=== PATIENT | male | born 1990 | race Caucasian/White ===

== ENCOUNTER 2024-02-19 14:10 | Inpatient (IN) | payer MEDICAID, SELFPAY ==
--- NOTE | 2024-02-19 14:27 | ED.C_ITS ---
HPI - Psych 2 General: Chief Complaint: Psychiatric Symptoms Stated Complaint: 96 Hold Time Seen by Provider: 02/19/24 14:11 Source: patient and police Mode of arrival: ambulatory Limitations: no limitations History of Present Illness: 33-year-old male is here by police patient brought from [facility] on a 96- hour hold patient's been having hallucinations hearing voices he denies SI or HI patient was placed on a court order hold by [facility] [address]. He has been admitted there for 2 weeks for rehab from methamphetamine Associated symptoms: Reports auditory hallucinations; Deny depression Related Data Home Medications Medication Instructions Recorded Confirmed bupropion HCl 150 mg 24 hr tablet, 150 mg PO QAM 02/19/24 02/19/24 extended release olanzapine 10 mg tablet 20 mg PO QPM 02/19/24 02/19/24 propranolol 20 mg tablet 20 mg PO TID 02/19/24 02/19/24 Review of Systems 2 Const: Denies: fever(s), chills, body aches or change in appetite ENMT: Denies: throat pain or dental pain Card: Denies: chest pain Resp: Denies: dyspnea GI: Denies: abdominal pain, nausea, vomiting or diarrhea Musc: Denies: neck pain or back pain Skin/Breast: Denies: rash Neuro: Denies: headache(s) Psych: Reports: difficulty concentrating and auditory hallucinations; Denies: depression Physical Exam 2 Const: COMMON NORMALS: no acute distress, patient oriented x3 and healthy appearing HENMT: COMMON NORMALS: normocephalic and atraumatic HEAD & SCALP: n ormocephalic and atraumatic Neck/C-Spine: COMMON NORMALS: full ROM and supple Chest: COMMONS NORMALS: normal inspection of the chest Resp: COMMON NORMALS: normal respiratory effort Cardio: COMMON NORMALS: regular rate RATE: regular rate Extremity: COMMON NORMALS: normal to inspection and full ROM Neuro: COMMON NORMALS: patient oriented x3, moves all extremities and no focal motor deficits Psych: COMMON NORMALS: cooperative THOUGHT CONTENT: Yes Hallucination(s) present Skin: COMMON NORMALS: no rashes or lesions noted and no wounds GENERAL SKIN EXAM: no rashes or lesions noted MDM - Psych Medical Decision Making Patient presents here with auditory hallucinations he has been placed on a 96- hour hold by [facility] I spoke to psychiatrist patient is medically cleared will admit Medical Records I reviewed the patient's medical records. Lab Data I reviewed the patient's lab results. 02/19/24 14:32 02/19/24 14:32 Laboratory Results WBC 10.21 10^3/uL (3.29-11.43) 02/19/24 14:32 RBC 5.31 10^6/uL (3.85-5.65) 02/19/24 14:32 Hgb 14.80 g/dL (11.27-16.99) 02/19/24 14:32 Hct 45.8 % (37-53) 02/19/24 14:32 MCV 86.3 fl (82-101) 02/19/24 14: MCH 27.9 pg (27-33) 02/19/24 14: MCHC 32.3 g/dL (30-55) 02/19/24 14:32 RDW 13.2 % (12.1-15.1) 02/19/24 14:32 Plt Count 268 10^3/cmm (157-399) 02/19/24 14:32 MPV 9.4 fL (7.4-10.4) 02/19/24 14:32 Neut % (Auto) 55.4 % 02/19/24 14:32 Lymph % (Auto) 34.0 % 02/19/24 14:32 [place] % (Auto) 6.2 % 02/19/24 14:32 Eos % (Auto) 2.8 % 02/19/24 14:32 Baso % (Auto) 1.2 % 02/19/24 14:32 Neut # (Auto) 5.66 10^3/uL (1.8-7.7) 02/19/24 14:32 Lymph # (Auto) 3.5 10^3/uL (0.8-4.8) 02/19/24 14:32 [place] # (Auto) 0.6 10^3/uL (0.2-0.9) 02/19/24 14:32 Eos # (Auto) 0.3 10^3/uL (0.0-0.8) 02/19/24 14:32 Baso # (Auto) 0.1 10^3/uL (0.0-0.1) 02/19/24 14:32 Nucleated RBC % (auto) 0 % 02/19/24 14:32 Nucleated RBCs # 0.0 /100WBC 02/19/24 14:32 Sodium 138 mmol/L (136-145) 02/19/24 14:32 Potassium 4.5 mmol/L (3.5-5.1) 02/19/24 14:32 Chloride 101 mmol/L (98-107) 02/19/24 14:32 Carbon Dioxide 26 mmol/L (22-29) 02/19/24 14:32 Anion Gap 15.5 (5-19) 02/19/24 14:32 BUN 6 mg/dL (6-20) 02/19/24 14:32 Creatinine 0.8 mg/dL (0.7-1.2) 02/19/24 14:32 GFR Calculation 112.8 mL/min (90-130) 02/19/24 14:32 Glucose 87 mg/dL (65-115) 02/19/24 14:32 Calculated Osmolality 283 mOsm/kg (285-295) L 02/19/24 14:32 Calcium 9.0 mg/dL (8.5-10.5) 02/19/24 14:32 Total Bilirubin 0.2 mg/dL (0.15-1.2) 02/19/24 14:32 AST 18 U/L (0-40) 02/19/24 14:32 ALT 11 U/L (0-41) 02/19/24 14:32 Alkaline Phosphatase 100 U/L (40-130) 02/19/24 14:32 Total Protein 7.2 g/dL (6.6-8.7) 02/19/24 14:32 Albumin 4.5 g/dL (3.5-5.2) 02/19/24 14:32 Globulin 2.7 g/dL (1.3-4.6) 02/19/24 14:32 Salicylates < 0.3 mg/dL (3-10) L 02/19/24 14:32 Urine Opiates Screen Negative ng/mL (Negative) 02/19/24 14:16 Acetaminophen < 5.0 ug/mL (10-30) L 02/19/24 14:32 Ur Barbiturates Screen Negative ng/mL (Negative) 02/19/24 14:16 Ur Phencyclidine Scrn Negative ng/mL (Negative) 02/19/24 14:16 Ur Amphetamines Screen Negative ng/mL (Negative) 02/19/24 14:16 U Benzodiazepines Scrn Negative ng/mL (Negative) 02/19/24 14:16 Urine Cocaine Screen Negative ng/mL (Negative) 02/19/24 14:16 U Marijuana (THC) Screen Negative ng/mL (Negative) 02/19/24 14:16 Ethyl Alcohol < 10 mg/dL (0-10) 02/19/24 14:32 No radiology studies performed this visit Discharge Plan Discharge Condition: Stable Prescriptions: No Action olanzapine 10 mg tablet 20 mg PO QPM propranolol 20 mg tablet 20 mg PO TID bupropion HCl 150 mg tablet extended release 24 hr 150 mg PO QAM Coding Level of Care Code ED Biomedical Equipment Specialist for Yamileth Hayes
[2024-02-19 14:39] LABS: Basophils # 0.1 10^3/uL (0.0-0.1); Basophils % 1.2 %; Eosinophils # 0.3 10^3/uL (0.0-0.8); Eosinophils % 2.8 %; Hematocrit 45.8 % (37-53); Lymphocytes # 3.5 10^3/uL (0.8-4.8); Mean Corpuscular HGB Conc 32.3 g/dL (30-55); Mean Corpuscular Hemoglobin 27.9 pg (27-33); Mean Corpuscular Volume 86.3 fl (82-101); Mean Platelet Volume 9.4 fL (7.4-10.4); Monocytes # 0.6 10^3/uL (0.2-0.9); Monocytes % 6.2 %; Neutrophils # 5.66 10^3/uL (1.8-7.7); Neutrophils % 55.4 %; Nucleated Red Blood Cells % 0 %; Platelet Count 268 10^3/cmm (157-399); Red Blood Count 5.31 10^6/uL (3.85-5.65); Red Cell Distribution Width 13.2 % (12.1-15.1); White Blood Count 10.21 10^3/uL (3.29-11.43)
--- NOTE | 2024-02-19 14:53 | PC.PHAR ---
we had a 10mg dose on the olanzapine, patient stated he had a recent dose change to 20mg
[2024-02-19 14:59] LABS: Alanine Aminotransferase 11 U/L (0-41); Albumin Level 4.5 g/dL (3.5-5.2); Alkaline Phosphatase 100 U/L (40-130); Anion Gap 15.5 (5-19); Aspartate Amino Transferase 18 U/L (0-40); Blood Urea Nitrogen 6 mg/dL (6-20); Carbon Dioxide 26 mmol/L (22-29); Chloride 101 mmol/L (98-107); Globulin 2.7 g/dL (1.3-4.6); Glomerular Filtration Rate 112.8 mL/min (90-130); Glucose 87 mg/dL (65-115); Osmolality Calculated 283 mOsm/kg (285-295); Potassium 4.5 mmol/L (3.5-5.1); Sodium 138 mmol/L (136-145); Total Bilirubin 0.2 mg/dL (0.15-1.2); Total Protein 7.2 g/dL (6.6-8.7)
[2024-02-19 15:01] LABS: Acetaminophen < 5.0 ug/mL (10-30); Alcohol Level < 10 mg/dL (0-10); Salicylate < 0.3 mg/dL (3-10)
[2024-02-19 15:27] LABS: Amphetamines Screen Urine Negative (Negative); Barbiturates Screen Urine Negative (Negative); Benzodiazepines Screen Urine Negative (Negative); Cocaine Screen Urine Negative (Negative); Opiate Screen Urine Negative (Negative); PCP Screen Urine Negative (Negative); THC Screen Urine Negative (Negative)
[2024-02-19] MEDS: nicotine 21 mg Patch 1 PATCH TRANSDERMA (15:48)
--- NOTE | 2024-02-19 16:51 | PC.NURSE ---
96 hour hold rights read and reviewed with patient. Patient was brought in on a hold by [facility]. Patient verbalized understandings and copy of rights given to patient.
[2024-02-19 16:52] VITALS: BP 149/94; PULSE 78; RESP 20; TEMP 36.5; O2SAT 99
--- NOTE | 2024-02-19 17:31 | PC.NURSE ---
Report called to NPU 170-1 Cristina nurse.
[2024-02-19 17:41] VITALS: BP 135/91; BP 149/94; PULSE 70; PULSE 78; RESP 16; TEMP 37.1; O2SAT 98; O2SAT 99
--- NOTE | 2024-02-19 18:36 | PC.NURSE ---
Patient denies si/hi. He does say he attempted to overdose on meth approximately 2 years ago, but was unsuccessful. He denies vh, but says he often hears voices telling him things that don't make sense until they happen later on and that the voices have helped him through things . Patient states he has a court date on 05/01/24 for drug (meth) possession. He says he was in [facility] from August 16, 2022-September and that when he was released within the month 3 people had already shown up to his house to sell him meth and he ended up relapsing. Patient arrived with police from [facility] where he is currently in treatment for his methamphetamine abuse and says he has been there since 02/06/24. Patient says he is unsure why police brought him here, but that he thinks he may have had an altercation with someone that he's not aware of. He says he also noticed that his roommate at [facility] was moved out of his room and he thinks the roommate may have said something. Patient lives with his father and does say his father does not use any drugs.
[2024-02-19 20:25] VITALS: BP 132/72; PULSE 85; RESP 18; TEMP 36.9; O2SAT 97
[2024-02-19] MEDS: OLANZapine 10 mg TABLET 20 MG PO (21:54)
[2024-02-19] MEDS: propranolol 20 mg Tablet PO (21:54)
[2024-02-20 06:00] VITALS: BP 130/78; PULSE 77; RESP 18; TEMP 36.4; O2SAT 99
[2024-02-20] MEDS: buPROPion XL (24 HR) 150 mg Tablet PO (08:05)
[2024-02-20] MEDS: propranolol 20 mg Tablet PO ×3 (08:05→21:13)
[2024-02-20] MEDS: acetaminophen 325 mg Tablet 650 MG PO (12:33)
[2024-02-20] MEDS: hyDROXYzine 25 mg Capsule 50 MG PO (13:18)
--- NOTE | 2024-02-20 13:56 | W.PM.NPUH&PS ---
Providers/Chief Complaint Admitting Physician: Bam Michel MD Chief Complaint: 96 Hold HPI NPU History of Present Illness Hermilo Rodriguez is a 33 year old male who presented to the emergency department with the following report: Chief Complaint: Psychiatric Symptoms Stated Complaint: 96 Hold Time Seen by Provider: 02/19/24 14:11 Source: patient and police Mode of arrival: ambulatory Limitations: no limitations History of Present Illness: 33-year-old male is here by police patient brought from [facility] on a 96-hour hold patient's been having hallucinations hearing voices he denies SI or HI patient was placed on a court order hold by [facility]. He has been admitted there for 2 weeks for rehab from methamphetamine Associated symptoms: Reports auditory hallucinations; Deny depression. He was admitted to the neuropsychiatric unit for definitive treatment of those issues. He is unknown to [facility] inpatient or outpatient psychiatric services. He presents today reporting: Chief complaint The patient is struggling with methamphetamine addiction and has been hearing voices. History of the present complaint The patient, born on 1990, is currently on olanzapine and propranolol, which he takes daily. He started taking these medications a few months ago, initially in an outpatient clinic in [place], before moving to [facility]. The patient has a history of methamphetamine use, which he started struggling with at the age of 29. He has been admitted to psychiatric hospitals approximately 10 times in the last 15 years. He has also been treated at [facility] and is currently attending [facility]. The patient reported that his symptoms worsened after he stopped using methamphetamine. He has been on several medications in the past, including Newman, Depakote, Drexel, and Abilify. He expressed a preference for pill forms of medication, as he finds it difficult to get the injections due to transportation issues. He has also been on the Invega shot, which he found unhelpful. The patient reported hearing voices, which started three days after a night of missed sleep. He denied any feelings of paranoia. He has experienced periods of depression, during which his sleep and diet are affected. He tends to eat more or less during these periods and has low energy. He has had thoughts of not wanting to wake up and has acted on suicidal thoughts twice in his life, both times through overdosing. He also has a history of self-injurious behavior, such as burning himself, which started when he was younger but has not occurred for many years. The patient reported occasional feelings of anxiety and worry but denied any paranoia or intrusive thoughts. He also denied having nightmares or flashbacks about bad things that have happened. He has been on his current medication for a while and finds it acceptable. He has been to rehab multiple times but has never had any charges related to substance use. He started smoking tobacco three years ago and currently smokes about two packs a day. He used to use marijuana regularly but does not currently use it. He does not consume alcohol. The patient has been in nursing home once for a year but has no other retirement time. He has no known medical problems and has never had any surgeries or broken bones. He reported feeling good on the day of the consultation and denied any current thoughts of self-harm, suicide, or harm to others. He also denied currently hearing voices, seeing things, or feeling paranoid. His longest job was for six months, and he is currently on disability. He identifies as heterosexual and his longest relationship lasted three months. He has never been or had children. He has no tenriism belief system. Mental health history The patient has been in psychiatric hospitals approximately 10 times in the last 15 years. He has been on various medications including olanzapine, propranolol, Depakote, Drexel, and Abilify. He has a history of self-injurious behavior, such as burning himself, which started when he was younger but has not occurred in recent years. He has also attempted suicide twice in his life through overdose. Social history The patient has a history of methamphetamine use, starting at the age of 29. He has been to rehab multiple times. He also has a history of tobacco use, smoking about two packs a day for the past three years. He used to use cannabis regularly but has not in recent years. He does not consume alcohol. He has been unemployed for a while and is currently on disability. He has been in nursing home once for a year. Meds NPU Home Medications Medication Instructions Recorded Confirmed Last Taken Type bupropion HCl 150 mg 24 hr tablet, 150 mg PO QAM 02/19/24 02/19/24 Unknown History extended release olanzapine 10 mg tablet 20 mg PO QPM 02/19/24 02/19/24 Unknown History propranolol 20 mg tablet 20 mg PO TID 02/19/24 02/19/24 Unknown History Allergies Allergy/AdvReac Type Severity Reaction Status Date / Time poison kylie extract Allergy ALGY-Rash Verified 02/19/24 18:43 PFSH NPU PFS: Family History (Updated 02/19/24 @ 18:45 by Génesis Lobo RN) Father Pancreatitis Heart failure Mental Status Exam MSE Comments: This is a well-nourished well-developed white male in hospital scrubs with limited grooming and eye contact. No abnormal movements except for mild psychomotor retardation . He was cooperative with exam in mild distress. Speech was decreased rate and volume. Mood described as slightly depressed and anxious, his affect was mood congruent. Thought process was linear. Thought content: The patient reports hearing voices and has a history of psychosis. He has experienced depression and has had periods of low mood and energy, which have affected his sleep and diet. He has also experienced suicidal ideation in the past. He reports occasional anxiety and feeling fidgety but denies any paranoia or intrusive thoughts. He denies any current thoughts of self-harm, violence towards others, or hallucinations. Attention and concentration were mostly intact and memory appeared somewhat reliable but none were formally tested. He is alert and oriented to person, place and situation. Insight, judgment and impulse control all impaired. Vitals/I&O/Wt Last Vital Signs Temp 97.6 F 02/20/24 06:00 Pulse 77 02/20/24 06:00 Resp 18 02/20/24 06:00 BP 130/78 02/20/24 06:00 Pulse Ox 99 02/20/24 06:00 O2 Del Method Room Air 02/20/24 06:00 Weight last 48 hrs Weight 68.039 kg Data NPU 02/19/24 14:32 02/19/24 14:32 A&P Assessment and plan (1) History of schizophrenia: (2) Psychosis: (3) Methamphetamine use disorder, severe, dependence: Plan This is a 33-year-old white male with a history of addiction and some mental health challenges and reports that he had been recently using methamphetamine before going to [employer] and then had some psychosis that it was hard to manage. The patient is experiencing methamphetamine use disorder and has been experiencing auditory hallucinations. He has a history of self-injurious behavior and suicide attempts. He is currently on olanzapine and propranolol and has been adherent to his pharmacotherapy regimen. 1.? Continue current medication. 2.? Continue every 15 minute checks for safety. 3.? Encourage individual, group and milieu therapies. 4. Encourage sober living treatment after discharge at the highest level care to which he is willing to commit. He will return to [facility] upon discharge. 5. Obtain collateral information. Involuntary Hold Information 96 Hour Hold: 96 Hour Involuntary Admission: Yes 96 Hour Hold Ending Date: 02/26/24 96 Hour Hold Ending Time: 14:12 Other Hold: Hold End Date: 02/26/24 Attestations NPU Medical Necessity Statement*: Inpatient hospitalization is medically necessary and the clinically appropriate intervention at this time. We will monitor medications/initiate medications and make changes as indicated. He will be in the hospital for over 2 midnights. Likely length of stay 3 to 5 days. Coding Level of Care Code Acute Code for Chg Fwd Diagnoses History of schizophrenia Z86.59 Psychosis F29 Methamphetamine use disorder, severe, dependence F15.20
[2024-02-20 14:00] VITALS: BP 131/79; PULSE 66; RESP 17; TEMP 36.7; O2SAT 97
[2024-02-20 20:00] VITALS: BP 133/70; PULSE 76; RESP 16; TEMP 36.9; O2SAT 98
[2024-02-20] MEDS: OLANZapine 10 mg TABLET 20 MG PO (21:13)
[2024-02-21 06:00] VITALS: BP 131/84; PULSE 78; RESP 18; O2SAT 97
[2024-02-21] MEDS: nicotine 4 mg lozenge MUCOUS MEM ×6 (06:24→19:36)
[2024-02-21] MEDS: propranolol 20 mg Tablet PO ×3 (08:22→21:34)
[2024-02-21] MEDS: buPROPion XL (24 HR) 150 mg Tablet PO (08:22)
--- NOTE | 2024-02-21 11:17 | PC.NURSE ---
NEW ORDERS RECEIVED FROM DR. CAST TO START ZYDIS 5 MG PO DAILY, FIRST DOSE TO BE GIVEN NOW, THEN DAILY AFTER. ORDERS PLACED AND PTS RN UPDATED ON NEW ORDERS.
[2024-02-21] MEDS: OLANZapine 5 mg ODT PO (12:42)
[2024-02-21 14:00] VITALS: BP 128/81; PULSE 95; RESP 16; TEMP 36.7; O2SAT 96
--- NOTE | 2024-02-21 16:57 | P.NPUPN_ITS ---
Subjective NPU 2 Subjective: Patient presented today reporting no changes. He continues to report a desire to maintain his current medication and we discussed the risks, benefits and alternatives of adding 5 mg of Zyprexa as a morning dose and he understood and agreed to proceed as is documented in this note. We agreed to a goal of getting him a bit more stabilized before returning to [facility]. He denied any side effects to the medication. Mental Status Exam 2 MSE Comments: This is a well-nourished well-developed white male in hospital scrubs with limited grooming and eye contact. No abnormal movements except for mild psychomotor retardation . He was cooperative with exam in mild distress. Speech was decreased rate and volume. Mood described as slightly depressed and anxious, his affect was mood congruent. Thought process was linear. Thought content: The patient reports hearing voices and has a history of psychosis. He has experienced depression and has had periods of low mood and energy, which have affected his sleep and diet. He has also experienced suicidal ideation in the past. He reports occasional anxiety and feeling fidgety but denies any paranoia or intrusive thoughts. He denies any current thoughts of self-harm, violence towards others, or hallucinations. Attention and concentration were mostly intact and memory appeared somewhat reliable but none were formally tested. He is alert and oriented to person, place and situation. Insight, judgment and impulse control all impaired. Vitals/I&O/Wt Last Vital Signs Temp 98.0 F 02/21/24 14:00 Pulse 95 02/21/24 14:00 Resp 16 02/21/24 14:00 BP 128/81 02/21/24 14:00 Pulse Ox 96 02/21/24 14:00 O2 Del Method Room Air 02/21/24 06:00 Weight last 48 hrs Weight 68.039 kg Data NPU 02/19/24 14:32 02/19/24 14:32 A&P Assessment and plan (1) History of schizophrenia: (2) Psychosis: (3) Methamphetamine use disorder, severe, dependence: Plan This is a 33-year-old white male with a history of addiction and some mental health challenges and reports that he had been recently using methamphetamine before going to [facility] and then had some psychosis that it was hard to manage. The patient is experiencing methamphetamine use disorder and has been experiencing auditory hallucinations. He has a history of self-injurious behavior and suicide attempts. He is currently on olanzapine and propranolol and has been adherent to his pharmacotherapy regimen. 1.? Continue current medication. Added a 5 mg morning dose of the Zyprexa. 2.? Continue every 15 minute checks for safety. 3.? Encourage individual, group and milieu therapies. 4. Encourage sober living treatment after discharge at the highest level care to which he is willing to commit. He will return to [facility] upon discharge. 5. Obtain collateral information. Involuntary Hold Information 2 96 Hour Hold: 96 Hour Involuntary Admission: Yes 96 Hour Hold Ending Date: 02/26/24 96 Hour Hold Ending Time: 14:12 Other Hold: Hold End Date: 02/26/24 Attestations NPU 2 Medical Necessity Statement*: Inpatient hospitalization is medically necessary and the clinically appropriate intervention at this time. We will monitor medications/initiate medications and make changes as indicated. Likely length of stay 3 to 5 days. Coding Level of Care Code Acute Code for Chg Fwd Diagnoses History of schizophrenia Z86.59 Psychosis F29 Methamphetamine use disorder, severe, dependence F15.20
[2024-02-21 19:41] VITALS: BP 131/82; PULSE 79; RESP 18; TEMP 37.1; O2SAT 99
[2024-02-21] MEDS: OLANZapine 10 mg TABLET 20 MG PO (21:34)
[2024-02-22 06:00] VITALS: BP 145/83; PULSE 67; RESP 16; TEMP 36.8; O2SAT 99
[2024-02-22] MEDS: nicotine 4 mg lozenge MUCOUS MEM ×7 (06:54→20:40)
[2024-02-22] MEDS: buPROPion XL (24 HR) 150 mg Tablet PO (08:27)
[2024-02-22] MEDS: OLANZapine 5 mg ODT PO (08:27)
[2024-02-22] MEDS: propranolol 20 mg Tablet PO ×3 (08:27→20:40)
[2024-02-22] MEDS: acetaminophen 325 mg Tablet 650 MG PO (10:22)
[2024-02-22 14:00] VITALS: BP 127/81; PULSE 76; RESP 18; TEMP 36.6; O2SAT 97
--- NOTE | 2024-02-22 14:43 | P.NPUPN_ITS ---
Subjective NPU 2 Subjective: Patient presented today reporting that he was doing okay on his medication. We had discussed the risks, benefits and alternatives of adding Zyprexa 5 mg p.o. daily and he understood and agreed to proceed as is documented in this note. He reports that he is doing well otherwise and is hopeful that he can return to [facility] by Sunday. He denied any side effects to the medication. Mental Status Exam 2 MSE Comments: This is a well-nourished well-developed white male in hospital scrubs with limited grooming and eye contact. No abnormal movements except for mild psychomotor retardation . He was cooperative with exam in mild distress. Speech was decreased rate and volume. Mood described as slightly depressed and anxious, his affect was mood congruent. Thought process was linear. Thought content: The patient reports hearing voices and has a history of psychosis. He has experienced depression and has had periods of low mood and energy, which have affected his sleep and diet. He has also experienced suicidal ideation in the past. He reports occasional anxiety and feeling fidgety but denies any paranoia or intrusive thoughts. He denies any current thoughts of self-harm, violence towards others, or hallucinations. Attention and concentration were mostly intact and memory appeared somewhat reliable but none were formally tested. He is alert and oriented to person, place and situation. Insight, judgment and impulse control all impaired. Vitals/I&O/Wt Last Vital Signs Temp 98.2 F 02/22/24 06:00 Pulse 67 02/22/24 06:00 Resp 16 02/22/24 06:00 BP 145/83 02/22/24 06:00 Pulse Ox 99 02/22/24 06:00 O2 Del Method Room Air 02/22/24 06:00 Data NPU 02/19/24 14:32 02/19/24 14:32 A&P Assessment and plan (1) History of schizophrenia: (2) Psychosis: (3) Methamphetamine use disorder, severe, dependence: Plan This is a 33-year-old white male with a history of addiction and some mental health challenges and reports that he had been recently using methamphetamine before going to [facility] and then had some psychosis that it was hard to manage. The patient is experiencing methamphetamine use disorder and has been experiencing auditory hallucinations. He has a history of self-injurious behavior and suicide attempts. He is currently on olanzapine and propranolol and has been adherent to his pharmacotherapy regimen. 1.? Continue current medication. Added a 5 mg morning dose of the Zyprexa. 2.? Continue every 15 minute checks for safety. 3.? Encourage individual, group and milieu therapies. 4. Encourage sober living treatment after discharge at the highest level care to which he is willing to commit. He will return to [facility] upon discharge. 5. Obtain collateral information. Involuntary Hold Information 2 96 Hour Hold: 96 Hour Involuntary Admission: Yes 96 Hour Hold Ending Date: 02/26/24 96 Hour Hold Ending Time: 14:12 Other Hold: Hold End Date: 02/26/24 Attestations NPU 2 Medical Necessity Statement*: Inpatient hospitalization is medically necessary and the clinically appropriate intervention at this time. We will monitor medications/initiate medications and make changes as indicated. Likely length of stay 3 days. Coding Level of Care Code Acute Code for Chg Fwd Diagnoses History of schizophrenia Z86.59 Psychosis F29 Methamphetamine use disorder, severe, dependence F15.20
[2024-02-22 19:36] VITALS: BP 116/75; PULSE 68; RESP 16; TEMP 36.8; O2SAT 99
[2024-02-22] MEDS: hyDROXYzine 25 mg Capsule 50 MG PO (20:40)
[2024-02-22] MEDS: OLANZapine 10 mg TABLET 20 MG PO (20:40)
--- NOTE | 2024-02-22 21:24 | PC.NURSE ---
Addendum entered and electronically signed by Tata Wolfe RN 02/24/24 06:31: PT UP AND DOWN THROUGHOUT THE NIGHT DUE TO ROOM MATE NOT SLEEPING AND KEEPING HIM UP. MEDICATION WAS SOMEWHAT EFFECTIVE AND PT STATES HE WAS ABLE TO REST A FEW HOURS. PT HAS BEEN RESTING SINCE ABOUT 0400 AND CONTINUES TO REST WITH EASE. Original Note: IN BED RESTING, DENIES PAIN. DENIES SI/HI AND AVH AT THIS TIME. RATES ANXIETY 6/10 AND DEPRESSION 4/10. VISTARIL 50 MG GIVEN ORDERED FOR INCREASED ANXIETY. SUPPORT VOICED.
[2024-02-23 05:55] VITALS: BP 147/84; PULSE 60; RESP 16; TEMP 36.8; O2SAT 97
[2024-02-23] MEDS: nicotine 4 mg lozenge MUCOUS MEM ×7 (06:32→22:29)
[2024-02-23] MEDS: OLANZapine 5 mg ODT PO (08:32)
[2024-02-23] MEDS: buPROPion XL (24 HR) 150 mg Tablet PO (08:32)
[2024-02-23] MEDS: propranolol 20 mg Tablet PO ×3 (08:32→20:33)
--- NOTE | 2024-02-23 08:34 | P.NPUPN_ITS ---
Subjective NPU 2 Subjective: Patient presents today reporting that he is doing all right and is optimistic about the plan of returning to [facility] likely on Sunday. He reports that the morning dose of Zyprexa has been helpful in calming his mind during the day and he feels that it was just a late impact of the methamphetamine when he started feeling the way that he did. He continues to have more more days from his methamphetamine use and he feels optimistic that he will be ready to return to [facility] on Sunday. He denied any side effects to the medication. Mental Status Exam 2 MSE Comments: This is a well-nourished well-developed white male in hospital scrubs with limited grooming and eye contact. No abnormal movements except for mild psychomotor retardation . He was cooperative with exam in mild distress. Speech was decreased rate and volume. Mood described as a little better, his affect was mood congruent still slightly subdued. Thought process was linear. Thought content: The patient reports hearing voices and has a history of psychosis. He has experienced depression and has had periods of low mood and energy, which have affected his sleep and diet. He has also experienced suicidal ideation in the past. He reports occasional anxiety and feeling fidgety but denies any paranoia or intrusive thoughts. He denies any current thoughts of self-harm, violence towards others, or hallucinations. Attention and concentration were mostly intact and memory appeared somewhat reliable but none were formally tested. He is alert and oriented to person, place and situation. Insight, judgment and impulse control all impaired. Vitals/I&O/Wt Last Vital Signs Temp 98.2 F 02/23/24 05:55 Pulse 60 02/23/24 05:55 Resp 16 02/23/24 05:55 BP 147/84 02/23/24 05:55 Pulse Ox 97 02/23/24 05:55 O2 Del Method Room Air 02/23/24 05:55 Data NPU 02/19/24 14:32 02/19/24 14:32 A&P Assessment and plan (1) History of schizophrenia: (2) Psychosis: (3) Methamphetamine use disorder, severe, dependence: Plan This is a 33-year-old white male with a history of addiction and some mental health challenges and reports that he had been recently using methamphetamine before going to [facility] and then had some psychosis that it was hard to manage. The patient is experiencing methamphetamine use disorder and has been experiencing auditory hallucinations. He has a history of self-injurious behavior and suicide attempts. He is currently on olanzapine and propranolol and has been adherent to his pharmacotherapy regimen. 1.? Continue current medication. Added a 5 mg morning dose of the Zyprexa. 2.? Continue every 15 minute checks for safety. 3.? Encourage individual, group and milieu therapies. 4. Encourage sober living treatment after discharge at the highest level care to which he is willing to commit. He will return to [facility] upon discharge. 5. Obtain collateral information. Involuntary Hold Information 2 96 Hour Hold: 96 Hour Involuntary Admission: Yes 96 Hour Hold Ending Date: 02/26/24 96 Hour Hold Ending Time: 14:12 Other Hold: Hold End Date: 02/26/24 Attestations NPU 2 Medical Necessity Statement*: Inpatient hospitalization is medically necessary and the clinically appropriate intervention at this time. We will monitor medications/initiate medications and make changes as indicated. Likely length of stay 2 days. Coding Level of Care Code Acute Code for [facility] Fwd Diagnoses History of schizophrenia Z86.59 Psychosis F29 Methamphetamine use disorder, severe, dependence F15.20
[2024-02-23] MEDS: acetaminophen 325 mg Tablet 650 MG PO (09:49)
[2024-02-23 14:00] VITALS: BP 132/80; PULSE 64; RESP 18; TEMP 36.6; O2SAT 98
[2024-02-23 19:26] VITALS: BP 125/83; PULSE 104; RESP 18; TEMP 37.3; O2SAT 96
[2024-02-23] MEDS: trazodone 50 mg Tablet PO (20:33)
[2024-02-23] MEDS: OLANZapine 10 mg TABLET 20 MG PO (20:33)
[2024-02-23] MEDS: hyDROXYzine 25 mg Capsule 50 MG PO (20:35)
[2024-02-24] MEDS: nicotine 4 mg lozenge MUCOUS MEM ×7 (01:06→19:46)
[2024-02-24 05:55] VITALS: BP 126/79; PULSE 65; RESP 16; TEMP 36.6; O2SAT 97; BMI 23.5
[2024-02-24] MEDS: propranolol 20 mg Tablet PO ×3 (07:48→21:19)
[2024-02-24] MEDS: buPROPion XL (24 HR) 150 mg Tablet PO (07:48)
[2024-02-24] MEDS: OLANZapine 5 mg ODT PO (07:48)
--- NOTE | 2024-02-24 08:38 | P.NPUPN_ITS ---
Subjective NPU 2 Subjective: Patient presented today reporting that he is feeling okay. He reports that the morning Zyprexa was going fine he is having no problems with the medication arrangement. He reports the odd thinking has diminished at this point he endorses optimism about being discharged back to [facility] tomorrow. He denies any side effects of medication. Mental Status Exam 2 MSE Comments: This is a well-nourished well-developed white male in hospital scrubs with limited grooming and eye contact. No abnormal movements except for mild psychomotor retardation . He was cooperative with exam in mild distress. Speech was decreased rate and volume. Mood described as a little better, his affect was mood congruent still slightly subdued. Thought process was linear. Thought content: The patient reports hearing voices and has a history of psychosis. He has experienced depression and has had periods of low mood and energy, which have affected his sleep and diet. He has also experienced suicidal ideation in the past. He reports occasional anxiety and feeling fidgety but denies any paranoia or intrusive thoughts. He denies any current thoughts of self-harm, violence towards others, or hallucinations. Attention and concentration were mostly intact and memory appeared somewhat reliable but none were formally tested. He is alert and oriented to person, place and situation. Insight, judgment and impulse control all impaired. Vitals/I&O/Wt Last Vital Signs Temp 97.9 F 02/24/24 05:55 Pulse 65 02/24/24 05:55 Resp 16 02/24/24 05:55 BP 126/79 02/24/24 05:55 Pulse Ox 97 02/24/24 05:55 O2 Del Method Room Air 02/24/24 05:55 Weight last 48 hrs Weight 70.08 kg Data NPU 02/19/24 14:32 02/19/24 14:32 A&P Assessment and plan (1) History of schizophrenia: (2) Psychosis: (3) Methamphetamine use disorder, severe, dependence: Plan This is a 33-year-old white male with a history of addiction and some mental health challenges and reports that he had been recently using methamphetamine before going to [facility] and then had some psychosis that it was hard to manage. The patient is experiencing methamphetamine use disorder and has been experiencing auditory hallucinations. He has a history of self-injurious behavior and suicide attempts. He is currently on olanzapine and propranolol and has been adherent to his pharmacotherapy regimen. 1.? Continue current medication. Added a 5 mg morning dose of the Zyprexa. 2.? Continue every 15 minute checks for safety. 3.? Encourage individual, group and milieu therapies. 4. Encourage sober living treatment after discharge at the highest level care to which he is willing to commit. He will return to [facility] upon discharge. Tentative plan for discharge tomorrow. 5. Obtain collateral information. Involuntary Hold Information 2 96 Hour Hold: 96 Hour Involuntary Admission: Yes 96 Hour Hold Ending Date: 02/26/24 96 Hour Hold Ending Time: 14:12 Other Hold: Hold End Date: 02/26/24 Attestations NPU 2 Medical Necessity Statement*: Inpatient hospitalization is medically necessary and the clinically appropriate intervention at this time. We will monitor medications/initiate medications and make changes as indicated. Likely length of stay 1 days. Coding Level of Care Code Acute Code for [facility] Fwd Diagnoses History of schizophrenia Z86.59 Psychosis F29 Methamphetamine use disorder, severe, dependence F15.20
[2024-02-24 14:00] VITALS: BP 128/77; PULSE 73; RESP 18; TEMP 36.9; O2SAT 98
[2024-02-24] MEDS: OLANZapine 10 mg TABLET 20 MG PO (21:19)
[2024-02-24] MEDS: bismuth subsalicylate 240 mL Btl 15 ML PO (21:20)
[2024-02-24 21:33] VITALS: BP 113/68; PULSE 63; RESP 17; TEMP 36.7; O2SAT 97
[2024-02-25] MEDS: nicotine 4 mg lozenge MUCOUS MEM ×4 (03:02→10:40)
[2024-02-25 06:00] VITALS: BP 130/65; PULSE 68; RESP 17; TEMP 36.7; O2SAT 98
[2024-02-25] MEDS: OLANZapine 5 mg ODT PO (08:48)
[2024-02-25] MEDS: propranolol 20 mg Tablet PO (08:48)
[2024-02-25] MEDS: buPROPion XL (24 HR) 150 mg Tablet PO (08:49)
--- NOTE | 2024-02-25 09:15 | P.NPUDS_ITS ---
Diagnoses at Discharge Discharge Diagnosis (1) History of schizophrenia: Status: Acute (2) Psychosis: Status: Acute (3) Methamphetamine use disorder, severe, dependence: Status: Acute Reason for Visit Reason for Visit: 96 Hold Brief History: History of Present Illness Hermilo Rodriguez is a 33 year old male who presented to the emergency department with the following report: Chief Complaint: Psychiatric Symptoms Stated Complaint: 96 Hold Time Seen by Provider: 02/19/24 14:11 Source: patient and police Mode of arrival: ambulatory Limitations: no limitations History of Present Illness: 33-year-old male is here by police patient brought from [facility] on a 96- hour hold patient's been having hallucinations hearing voices he denies SI or HI patient was placed on a court order hold by [facility]. He has been admitted there for 2 weeks for rehab from methamphetamine Associated symptoms: Reports auditory hallucinations; Deny depression. He was admitted to the neuropsychiatric unit for definitive treatment of those issues. He is unknown to [facility] inpatient or outpatient psychiatric services. He presents today reporting: Chief complaint The patient is struggling with methamphetamine addiction and has been hearing voices. History of the present complaint The patient, born on 1990, is currently on olanzapine and propranolol, which he takes daily. He started taking these medications a few months ago, initially in an outpatient clinic in [place], before moving to [facility]. The patient has a history of methamphetamine use, which he started struggling with at the age of 29. He has been admitted to psychiatric hospitals approximately 10 times in the last 15 years. He has also been treated at [facility] and is currently attending [facility]. The patient reported that his symptoms worsened after he stopped using methamphetamine. He has been on several medications in the past, including Newman, Depakote, [place], and Abilify. He expressed a preference for pill forms of medication, as he finds it difficult to get the injections due to transportation issues. He has also been on the Invega shot, which he found unhelpful. The patient reported hearing voices, which started three days after a night of missed sleep. He denied any feelings of paranoia. He has experienced periods of depression, during which his sleep and diet are affected. He tends to eat more or less during these periods and has low energy. He has had thoughts of not wanting to wake up and has acted on suicidal thoughts twice in his life, both times through overdosing. He also has a history of self-injurious behavior, such as burning himself, which started when he was younger but has not occurred for many years. The patient reported occasional feelings of anxiety and worry but denied any paranoia or intrusive thoughts. He also denied having nightmares or flashbacks about bad things that have happened. He has been on his current medication for a while and finds it acceptable. He has been to rehab multiple times but has never had any charges related to substance use. He started smoking tobacco three years ago and currently smokes about two packs a day. He used to use marijuana regularly but does not currently use it. He does not consume alcohol. The patient has been in long term once for a year but has no other fci time. He has no known medical problems and has never had any surgeries or broken bones. He reported feeling good on the day of the consultation and denied any current thoughts of self-harm, suicide, or harm to others. He also denied currently hearing voices, seeing things, or feeling paranoid. His longest job was for six months, and he is currently on disability. He identifies as heterosexual and his longest relationship lasted three months. He has never been or had children. He has no confucianism belief system. Mental health history The patient has been in psychiatric hospitals approximately 10 times in the last 15 years. He has been on various medications including olanzapine, propranolol, Depakote, [place], and Abilify. He has a history of self-injurious behavior, such as burning himself, which started when he was younger but has not occurred in recent years. He has also attempted suicide twice in his life through overd ose. Social history The patient has a history of methamphetamine use, starting at the age of 29. He has been to rehab multiple times. He also has a history of tobacco use, smoking about two packs a day for the past three years. He used to use cannabis regularly but has not in recent years. He does not consume alcohol. He has been unemployed for a while and is currently on disability. He has been in long term once for a year. Involuntary Hold Information 96 Hour Hold: 96 Hour Involuntary Admission: Yes 96 Hour Hold Ending Date: 02/26/24 96 Hour Hold Ending Time: 14:12 Other Hold: Hold End Date: 02/26/24 Mental Status Exam MSE Comments: This is a well-nourished well-developed white male in hospital scrubs with limited grooming and eye contact. No abnormal movements except for mild psychomotor retardation . He was cooperative with exam in mild distress. Speech was decreased rate and volume. Mood described as a little better, his affect was mood congruent still slightly subdued. Thought process was linear. Thought content: The patient reports hearing voices and has a history of psychosis. He has experienced depression and has had periods of low mood and energy, which have affected his sleep and diet. He has also experienced suicidal ideation in the past. He reports occasional anxiety and feeling fidgety but denies any paranoia or intrusive thoughts. He denies any current thoughts of self-harm, violence towards others, or hallucinations. Attention and concentration were mostly intact and memory appeared somewhat reliable but none were formally tested. He is alert and oriented to person, place and situation. Insight, judgment and impulse control all impaired. Discharge Data Studies Completed and Pending: Laboratory Results WBC 10.21 10^3/uL (3. 29-11.43) 02/19/24 14:32 RBC 5.31 10^6/uL (3.8 5-5.65) 02/19/24 14:32 Hgb 14.80 g/dL (11.27 -16.99) 02/19/24 14:32 Hct 45.8 % (37-53) 02/19/24 14:32 MCV 86.3 fl (82-101) 02/19/24 14:32 MCH 27.9 pg (27-33) 02/19/24 14:32 MCHC 32.3 g/dL (30-55) 02/19/24 14:32 RDW 13.2 % (12.1-15.1 ) 02/19/24 14:32 Plt Count 268 10^3/cmm (157 -399) 02/19/24 14:32 MPV 9.4 fL (7.4-10.4) 02/19/24 14:32 Neut % (Auto) 55.4 % 02/19/24 14:32 Lymph % (Auto) 34.0 % 02/19/24 14:32 [place] % (Auto) 6.2 % 02/19/24 14:32 Eos % (Auto) 2.8 % 02/19/24 14:32 Baso % (Auto) 1.2 % 02/19/24 14:32 Neut # (Auto) 5.66 10^3/uL (1.8 -7.7) 02/19/24 14:32 Lymph # (Auto) 3.5 10^3/uL (0.8- 4.8) 02/19/24 14:32 [place] # (Auto) 0.6 10^3/uL (0.2- 0.9) 02/19/24 14:32 Eos # (Auto) 0.3 10^3/uL (0.0- 0.8) 02/19/24 14:32 Baso # (Auto) 0.1 10^3/uL (0.0- 0.1) 02/19/24 14:32 Nucleated RBC % (a uto) 0 % 02/19/24 14:32 Nucleated RBCs # 0.0 /100WBC 02/19/24 14:32 Sodium 138 mmol/L (136-1 45) 02/19/24 14:32 Potassium 4.5 mmol/L (3.5-5 .1) 02/19/24 14:32 Chloride 101 mmol/L (98-10 7) 02/19/24 14:32 Carbon Dioxide 26 mmol/L (22-29) 02/19/24 14:32 Anion Gap 15.5 (5-19) 02/19/24 14:32 BUN 6 mg/dL (6-20) 02/19/24 14:32 Creatinine 0.8 mg/dL (0.7-1. 2) 02/19/24 14:32 GFR Calculation 112.8 mL/min (90- 130) 02/19/24 14:32 Glucose 87 mg/dL (65-115) 02/19/24 14:32 Calculated Osmolal ity 283 mOsm/kg (285- 295) L 02/19/24 14:32 Calcium 9.0 mg/dL (8.5-10 .5) 02/19/24 14:32 Total Bilirubin 0.2 mg/dL (0.15-1 .2) 02/19/24 14:32 AST 18 U/L (0-40) 02/19/24 14:32 ALT 11 U/L (0-41) 02/19/24 14:32 Alkaline Phosphata se 100 U/L (40-130) 02/19/24 14:32 Total Protein 7.2 g/dL (6.6-8.7 ) 02/19/24 14:32 Albumin 4.5 g/dL (3.5-5.2 ) 02/19/24 14:32 Globulin 2.7 g/dL (1.3-4.6 ) 02/19/24 14:32 Salicylates < 0.3 mg/dL (3-10 ) L 02/19/24 14:32 Urine Opiates Scre en Negative ng/mL (N egative) 02/19/24 14:16 Acetaminophen < 5.0 ug/mL (10-3 0) L 02/19/24 14:32 Ur Barbiturates Sc reen Negative ng/mL (N egative) 02/19/24 14:16 Ur Phencyclidine S crn Negative ng/mL (N egative) 02/19/24 14:16 Ur Amphetamines Sc reen Negative ng/mL (N egative) 02/19/24 14:16 U Benzodiazepines Scrn Negative ng/mL (N egative) 02/19/24 14:16 Urine Cocaine Scre en Negative ng/mL (N egative) 02/19/24 14:16 U Marijuana (THC) Screen Negative ng/mL (N egative) 02/19/24 14:16 Ethyl Alcohol < 10 mg/dL (0-10) 02/19/24 14:32 Vitals: Last Vital Signs Temp 98.1 F 02/25/24 06:00 Pulse 68 02/25/24 06:00 Resp 17 02/25/24 06:00 BP 130/65 02/25/24 06:00 Pulse Ox 98 02/25/24 06:00 O2 Del Method Room Air 02/25/24 06:00 Discharge Plan Discharge Patient Disposition: Home Condition: Stable Prescriptions: New trazodone 50 mg Tablet 50 mg PO BEDTIME PRN (Reason: Sleep) 30 Days Qty: 30 1RF olanzapine 5 mg Tablet,Disintegrating 5 mg PO DAILY 30 Days Qty: 30 1RF hydroxyzine pamoate 25 mg Capsule 50 mg PO Q6H PRN (Reason: Anxiety) 30 Days Qty: 120 1RF Continued olanzapine 10 mg tablet 20 mg PO QPM 30 Days Qty: 60 1RF propranolol 20 mg tablet 20 mg PO TID 30 Days Qty: 90 1RF bupropion HCl 150 mg tablet extended release 24 hr 150 mg PO QAM 30 Days Qty: 30 1RF Discharge Orders: Discharge Order (Routine); Ordered 02/25/24 Ordered By: Bam Michel Referrals: [facility] [Other] Discharge Diet: Regular Discharge Activity: Resume usual activity Patient Instructions: Opioid Safety Discharge Attestations NPU Time Spent in Discharge Care*: less than 30 min Specific Discharge Activities: Specific discharge activities: educating patient, discussing with case worker/social workers/dc planners, documenting/other paperwork and evaluating patient/reviewing data Coding Level of Care Code Acute Code for Chg Fwd Diagnoses History of schizophrenia Z86.59 Psychosis F29 Methamphetamine use disorder, severe, dependence F15.20
--- NOTE | 2024-02-25 09:34 | PC.NURSE ---
REPORTS HE SLEPT WELL. DENIES SI/HI AND VH AT THIS TIME. STATES MY VOICES ARE ALOT BETTER TODAY, I STILL HEAR THEM BUT THEY HAVE IMPROVED. COMPLIANT WITH MEDICATIONS RATES ANXIETY AND DEPRESSION 08/23. GOAL FOR THE DAY IS TO GET SOME SLEEP AND GO BACK TO [facility]. PT IS SET TO DISCHARGE TO [facility] BY 1100 AM WITH MEDS TO BEDS. ALL QUESTIONS ANSWERED AND SUPPORT VOICED.
[2024-02-25 09:39] VITALS: BP 124/78; PULSE 89; RESP 18; TEMP 37; O2SAT 99
== END 2024-02-25 11:45 | disposition other institution (70) | DRG 897 ==
LOC: ER 15:10 → NP 17:05
PROVIDERS: Admitting Provider Psychiatry & Neurology Psychiatry; Emergency Provider Emergency Medicine; Visit Provider Psychiatry & Neurology Psychiatry
DX: F15.251 Other stimulant dependence with stimulant-induced psychotic disorder with hallucinations (principal); F32.A Depression, unspecified; F17.210 Nicotine dependence, cigarettes, uncomplicated; Z91.51 Personal history of suicidal behavior; Z86.59 Personal history of other mental and behavioral disorders
CPT/HCPCS: 80053; 80306; 80307; 85025; 97150; 97165; 99285